=== PATIENT | female | born 2000 | race Caucasian/White ===

== ENCOUNTER 2021-12-26 18:17 | Emergency (ER) | payer BC ==
[2021-12-26] MEDS ORDERED: Ibuprofen 600 MG Tab PO ONE (18:26)
== END 2021-12-26 18:40 | disposition home or self-care (01) ==
LOC: KA.ED 18:17
DX: S60.221A Contusion of right hand, initial encounter (principal); W22.09XA Striking against other stationary object, initial encounter
CPT/HCPCS: 73130-RT; 99283; 99283-25; A9270-GY

== ENCOUNTER 2022-06-29 18:31 | Emergency (ER) | payer BC ==
[2022-06-29] MEDS ORDERED: Sodium Chloride 0.9% 10 ML Syringe FLUSH PRN (18:43)
[2022-06-29] MEDS ORDERED: Ondansetron 4 MG/2 ML SDV IVPUSH ONE (18:44)
[2022-06-29] MEDS ORDERED: HYDROmorphone 1 MG/ML Syringe IVPUSH ONE ×2 (18:57→19:30)
[2022-06-29] MEDS ORDERED: Sodium Chloride 0.9% 1,000 ML IV ONE (19:02)
[2022-06-29 19:34] LABS: ANION GAP 12.4 mmol/L (5-15); CHLORIDE,CL 107 mmol/L (98-107); ESTIMATED GFR 107 mL/min (>=60); SODIUM,NA 140 mmol/L (136-145)
== END 2022-06-29 20:23 ==
LOC: KA.ED 18:31
DX: O03.4 Incomplete spontaneous abortion without complication (principal)
CPT/HCPCS: 36415; 80053; 83605; 84702; 85025; 96361; 96374; 96375; 96376; 99284; 99285-25; J1170; J2405; J3490; J7030